=== PATIENT | male | born 1980 ===

== ENCOUNTER 2019-03-12 09:29 | Observation (INO) | payer OTHER ==
[~2019-03-12 09:29] MED LIST: ADRENALINE P/F SUB-Q ONE; BENADRYL IV ONE; PEPCID IV ONE; SOLU-Medrol IV ONE
[2019-03-12] MEDS ORDERED: ADRENALINE P/F SUB-Q ONE ×2 (09:34→09:39)
[2019-03-12] MEDS ORDERED: NACL 0.9% 1000 ML 1,000 ML IV ONE ×3 (09:40→09:44)
[2019-03-12] MEDS ORDERED: ADRENALINE P/F ONE ×2 (09:40→09:48)
[2019-03-12 09:54] LABS: Basophils % (Auto) 0.3 % (0.0-1.8); Eosinophils # (Auto) 0.1 K/mm3 (0.0-0.4); Eosinophils % (Auto) 1.2 % (0.0-4.3); Hematocrit 50.8 % (35.5-45.6); Hemoglobin 17.5 gm/dl (11.8-15.2); Lymphocytes # (Auto) 4.1 K/mm3 (1.2-5.4); Lymphocytes % (Auto) 53.8 % (13.4-35.0); Mean Corpuscular HGB Conc 34 % (32-34); Mean Corpuscular Hemoglobin 33 pg (28-32); Mean Corpuscular Volume 97 fl (84-94); Monocytes # (Auto) 0.5 K/mm3 (0.0-0.8); Monocytes % (Auto) 6.7 % (0.0-7.3); Red Blood Count 5.24 M/mm3 (3.65-5.03); Red Cell Distribution Width 12.9 % (13.2-15.2)
[2019-03-12] MEDS ORDERED: ADRENALIN 8 MG in NACL 0.9% 250ML 242 ML IV ONE (10:00)
--- NOTE | 2019-03-12 10:12 | Emergency Department Report ---
ED General Adult HPI - General Chief complaint: Allergic Reaction Stated complaint: STUNG BY BEE Time Seen by Provider: 03/12/19 09:43 Source: family Mode of arrival: Ambulatory Limitations: Other - History of Present Illness Initial comments: The patient presents to the emergency department via private vehicle for an allergic reaction. Upon initial evaluation the patient is obtunded and not able to answer questions. An diplomatic interpreter was used and his coworkers tell us that the patient was stung by a bee prior to their arrival. This occurred 10 minutes prior to presentation to the ED. Upon the patient didn't stung by the bee it was stated he began to have hives over his whole body and became unresponsive. No medications given prior to arrival to ED. -: Sudden Severity scale (0 -10): 0 Consistency: constant Improves with: none Worsens with: none Associated Symptoms: denies other symptoms Treatments Prior to Arrival: none - Related Data Allergies Allergy/AdvReac Type Severity Reaction Status Date / Time Unable to Assess Allergy Unverified 03/12/19 09:36 ED Review of Systems ROS: Stated complaint: STUNG BY BEE Other details as noted in HPI Comment: Unobtainable due to pts medical conditions ED Past Medical Hx - Past Medical History Additional medical history: RYLEY - Surgical History Additional Surgical History: RYLEY - Social History Smoking Status: Unknown if ever smoked ED Physical Exam - General Limitations: Language Barrier, Other General appearance: obtunded - Head Head exam: Present: atraumatic, normocephalic - Eye Eye exam: Present: normal appearance, PERRL, EOMI - ENT ENT exam: Present: mucous membranes dry, other (patient maintaining airway) - Neck Neck exam: Present: normal inspection - Respiratory Respiratory exam: Present: respiratory distress (mild respiratory distress), wheezes - Cardiovascular Cardiovascular Exam: Present: regular rate, normal rhythm. Absent: systolic murmur, diastolic murmur, rubs, gallop - GI/Abdominal GI/Abdominal exam: Present: soft, normal bowel sounds. Absent: distended, tenderness - Rectal Rectal exam: Present: deferred - Extremities Exam Extremities exam: Present: normal inspection - Back Exam Back exam: Present: normal inspection - Neurological Exam Neurological exam: Present: altered - Psychiatric Psychiatric exam: Present: other (not able to assess due to the patient's condition) - Skin Skin exam: Present: warm, intact, diaphoretic, urticaria. Absent: rash ED Course Vital Signs 03/12/19 03/12/19 03/12/19 09:30 09:33 09:44 Temperature Pulse Rate 73 Pulse Rate [ 72 104 H Anterior Bilateral Throughout] Respiratory 22 Rate Respiratory 20 16 Rate [Anterior Bilateral Throughout] Blood Pressure 114/74 O2 Sat by Pulse 91 Oximetry 03/12/19 03/12/19 09:56 10:09 Temperature 97.9 F Pulse Rate 102 H Pulse Rate [ Anterior Bilateral Throughout] Respiratory 9 L Rate Respiratory Rate [Anterior Bilateral Throughout] Blood Pressure 136/74 O2 Sat by Pulse 100 Oximetry ED Medical Decision Making - Lab Data Result diagrams: 03/12/19 09:38 03/12/19 09:38 Lab Results 03/12/19 Range/Units 09:38 WBC 7.7 (4.5-11.0) K/mm3 RBC 5.24 H (3.65-5.03) M/mm3 Hgb 17.5 H (11.8-15.2) gm/dl Hct 50.8 H (35.5-45.6) % MCV 97 H (84-94) fl MCH 33 H (28-32) pg MCHC 34 (32-34) % RDW 12.9 L (13.2-15.2) % Lymph % (Auto) 53.8 H (13.4-35.0) % [place] % (Auto) 6.7 (0.0-7.3) % Eos % (Auto) 1.2 (0.0-4.3) % Baso % (Auto) 0.3 (0.0-1.8) % Lymph # 4.1 (1.2-5.4) K/mm3 [place] # 0.5 (0.0-0.8) K/mm3 Eos # 0.1 (0.0-0.4) K/mm3 Baso # 0.0 (0.0-0.1) K/mm3 Seg Neutrophils % 38.0 L (40.0-70.0) % Seg Neutrophils # 2.9 (1.8-7.7) K/mm3 - Medical Decision Making Patient arrived to the ED obtunded and unresponsive Patient maintaining his airway thus intubation not required Nonrebreather mask placed Patient given 0.3 mg of subcutaneous epinephrine with minimal improvement while simultaneously obtained 2 large bore IVs with 3 L of fluid given 2 more doses of 0.3 mg of subcutaneous epinephrine given and patient becomes responsive Epinephrine drip ordered and given Patient is able to maintain conversation once resuscitation was completed Patient will be admitted to the ICU Critical care attestation.: If time is entered above; I have spent that time in minutes in the direct care of this critically ill patient, excluding procedure time. ED Disposition Clinical Impression: Anaphylactic reaction Disposition: OP ADMIT IP TO THIS HOSP Is pt being admited?: Yes Does the pt Need Aspirin: No Condition: Fair
[2019-03-12 10:17] LABS: Alanine Aminotransferase 23 units/L (7-56); BUN/Creatinine Ratio 17; Blood Urea Nitrogen 15 mg/dL (9-20); Calcium 8.9 mg/dL (8.4-10.2); Hemolysis Index 24
[2019-03-12 10:56] LABS: Platelet Count 282 K/mm3 (140-440)
[2019-03-12] MEDS ORDERED: BENADRYL IV PRN (11:03)
--- NOTE | 2019-03-12 11:06 | History and Physical Report ---
History of Present Illness Date of examination: 03/12/19 Date of admission: 03/12/19 Chief complaint: Anaphylactic /Allergic reaction due to bee sting History of present illness: History was obtained by a bilingual staff member of [facility] Patient was brought to the emergency room with history of bee sting and altered level of consciousness and severe anaphylactic/and allergic Whole body covered with hives and rash. Patient was unresponsive upon arrival to the emergency room, received several doses of racemic and subcutaneous epinephrine, high doses of IV steroids. with significant improvement of symptoms. At the time of my evaluation patient was alert and awake responding appropriately, on oxygen via Ventimask. The patient denies any chest pain,mild shortness of breath A rash and hives completely resolved Denies nausea vomiting or abdominal pain Denies headache dizziness weakness or numbness Past History Past Medical History: No medical history Past Surgical History: No surgical history Social history: lives with family. denies: smoking, alcohol abuse, prescription drug abuse Family history: hypertension Medications and Allergies Allergies Allergy/AdvReac Type Severity Reaction Status Date / Time No Known Allergies Allergy Verified 03/12/19 15:25 Home Medications Medication Instructions Recorded Confirmed Last Taken Type No Known Home Medications [No 03/12/19 03/12/19 Unknown History Reported Home Medications] Active Meds: Active Medications Epinephrine 8 mg/ Sodium (Chloride) 250 mls @ 3.75 mls/hr IV TITR ONE; Protocol Stop: 03/15/19 04:39 Last Admin: 03/12/19 10:09 Dose: 2 mcg/min, 3.75 mls/hr Documented by: Review of Systems Constitutional: no weight loss, no weight gain, no fever, no chills Ears, nose, mouth and throat: no nasal congestion, no nasal discharge Cardiovascular: no chest pain, no orthopnea, no palpitations Respiratory: no cough, no shortness of breath Gastrointestinal: no abdominal pain, no nausea, no vomiting Genitourinary Male: no dysuria, no hematuria Musculoskeletal: no neck pain, no arthritis Integumentary: rash (since our), other (allergic reaction) Neurological: no weakness, no numbness Psychiatric: no anxiety, no depression Endocrine: no cold intolerance, no heat intolerance, no polydipsia, no polyuria Hematologic/Lymphatic: no easy bruising, no easy bleeding Allergic/Immunologic: urticaria, anaphylaxis Exam - Constitutional Vitals: Temp Pulse Resp BP Pulse Ox 97.9 F 102 H 9 L 136/74 100 03/12/19 09:56 03/12/19 10:09 03/12/19 10:09 03/12/19 10:09 03/12/19 10:09 General appearance: Present: no acute distress, well-nourished - EENT Eyes: Present: PERRL, EOM intact - Neck Neck: Present: supple, normal ROM - Respiratory Respiratory effort: normal Respiratory: bilateral: diminished, negative: rales, rhonchi, wheezing - Cardiovascular Rhythm: regular Heart Sounds: Present: S1 & S2 - Extremities Extremities: no ischemia, No edema - Abdominal General gastrointestinal: Present: soft, non-tender, non-distended, normal bowel sounds - Integumentary Integumentary: Present: clear, warm - Musculoskeletal Musculoskeletal: strength equal bilaterally - Psychiatric Psychiatric: appropriate mood/affect, cooperative - Neurologic Neurologic: CNII-XII intact, moves all extremities Results - Labs CBC & Chem 7: 03/12/19 09:38 03/12/19 09:38 Labs: Abnormal lab results 03/12/19 03/12/19 Range/Units 09:38 09:38 RBC 5.24 H (3.65-5.03) M/mm3 Hgb 17.5 H (11.8-15.2) gm/dl Hct 50.8 H (35.5-45.6) % MCV 97 H (84-94) fl MCH 33 H (28-32) pg RDW 12.9 L (13.2-15.2) % Lymph % (Auto) 53.8 H (13.4-35.0) % Seg Neutrophils % 38.0 L (40.0-70.0) % Potassium 3.3 L (3.6-5.0) mmol/L Glucose 156 H (75-100) mg/dL Assessment and Plan --Anaphylactic reaction; Secondary to bee sting, patient is on Epi drip IV Solu-Medrol, Benadryl, IV Pepcid IV fluids and supportive care --Hypokalemia; replace with potassium chloride --DVT prophylaxis; SCD Monitor closely and adjust management as needed Admit to ICU, critical care consult Critical care time 35 minutes The high probability of a clinically significant, sudden or life threatening deterioration of the [Immunology , metabolic ,respiratory] system(s) required my full and direct attention, intervention and personal management. The aggregate critical care time was [35] minutes. This time is in addition to time spent performing reported procedures but includes the following: [x] Data Review and interpretation [x] Patient assessment and monitoring of vital signs [x] Documentation [x] Medication orders and management
[2019-03-12] MEDS ORDERED: NACL 0.9% 1000 ML 1,000 ML IV SCH (12:00)
[2019-03-12] MEDS ORDERED: SOLU-Medrol IV SCH ×3 (12:00→19:00)
[2019-03-12] MEDS ORDERED: SOLU-Medrol ONE (15:11)
[2019-03-12] MEDS: SOLU-Medrol IV SCH (21:24)
[2019-03-12] MEDS ORDERED: PEPCID IV SCH (22:00)
[2019-03-12] MEDS ORDERED: LOVENOX SUB-Q SCH (22:00)
[2019-03-13 06:39] LABS: BUN/Creatinine Ratio 15; Blood Urea Nitrogen 9 mg/dL (9-20); Calcium 8.6 mg/dL (8.4-10.2); Hemolysis Index 14
[2019-03-13] MEDS: SOLU-Medrol IV SCH (07:00)
--- NOTE | 2019-03-13 08:45 | Discharge Summary ---
Providers - Providers Date of Admission: 03/12/19 10:16 Attending physician: MARIAMA TATUM 03/12/19 11:09 Consult to Physician [CONS] Routine Comment: DR YECENIA MAGDALENO W/DR KIMBROUGH @[id number] Consulting Provider: MACEY KIMBROUGH Physician Instructions: Reason For Exam: Cr Care consult/Bee sting/Anaphylactic reaction [facility] Condition: Fair Disposition: DC-01 TO HOME OR SELFCARE Time spent for discharge: 32 min Core Measure Documentation - Palliative Care Palliative Care/ Comfort Measures: Not Applicable - Core Measures Any of the following diagnoses?: none Exam - Constitutional Vitals: Temp Pulse Resp BP Pulse Ox 98.4 F 93 H 17 118/78 97 03/13/19 08:17 03/13/19 08:20 03/13/19 08:20 03/13/19 08:20 03/13/19 08:20 General appearance: Present: no acute distress, well-nourished - EENT Eyes: Present: PERRL, EOM intact - Neck Neck: Present: supple, normal ROM - Respiratory Respiratory effort: normal Respiratory: negative: rales, rhonchi, wheezing - Cardiovascular Rhythm: regular Heart Sounds: Present: S1 & S2 - Extremities Extremities: no ischemia, No edema - Abdominal General gastrointestinal: Present: soft, non-tender, non-distended, normal bowel sounds - Integumentary Integumentary: Present: clear, warm - Musculoskeletal Musculoskeletal: strength equal bilaterally - Psychiatric Psychiatric: appropriate mood/affect, cooperative - Neurologic Neurologic: CNII-XII intact, moves all extremities Plan Activity: advance as tolerated Diet: regular Additional Instructions: You are allergic to Bee stings, try to avoid Bees Follow up with: NEIL YANEZELLENBORO MD LIDIA [Primary Care Provider] - 7 Days Prescriptions: diphenhydrAMINE [Benadryl CAP] 25 mg PO Q8HR PRN #15 capsule PRN Reason: Allergy Symptoms EPINEPHrine [Epipen 2-Gee] 0.3 mg IJ ONCE #2 auto.injct Famotidine [Pepcid] 20 mg PO BID #20 tablet Prednisone [predniSONE 10 mg (6-Day Pack, 21 Tabs)] 10 mg PO .TAPER #1 tab.ds.pk
[2019-03-13 09:20] VITALS: BP 123/80
[2019-03-13] MEDS ORDERED: PEPCID PO SCH (10:00)
[2019-03-13] MEDS ORDERED: DELTASONE PO SCH (10:00)
== END 2019-03-13 10:06 | disposition home or self-care (01) ==
LOC: ED 09:29 → CC1 10:16
PROVIDERS: ADMIT Internal Medicine; ATTEND Internal Medicine
DX: T78.2XXA Anaphylactic shock, unspecified, initial encounter (principal); E87.6 Hypokalemia
CPT/HCPCS: 36415; 80048; 80053; 82550; 85025; 93005; 93010; 94640; 96372; 96374; 96375; 96376; 99284; G0378; J0171; J1200; J1650; J2920; J2930; J7030; J7050; J7512